=== PATIENT | female | born 1965 | race Caucasian/White ===

== ENCOUNTER 2022-05-15 09:51 | Inpatient (IN) | payer MEDICARE, OTHER ==
[2022-05-15] MEDS ORDERED: Albuterol 8 GM Inhaler INH PRN (14:13)
[2022-05-15] MEDS ORDERED: HYDROmorphone 2 MG Tab PO PRN (14:13)
[2022-05-15] MEDS ORDERED: hydrOXYzine HCl 25 MG Tab PO PRN (14:13)
[2022-05-15] MEDS ORDERED: Acetaminophen 325 MG Tab PO PRN (14:13)
[2022-05-15] MEDS ORDERED: DAPTOmycin 500 MG Vial IV SCH (14:15)
[2022-05-15] MEDS ORDERED: Methotrexate 2.5 MG Tab PO SCH (14:15)
[2022-05-15] MEDS ORDERED: USTEKINUMAB 45 MG/0.5 ML SQ SCH (14:15)
[2022-05-15] MEDS: HYDROmorphone 2 MG Tab PO PRN ×2 (17:44→23:45)
[2022-05-15] MEDS: Insulin Lispro 100 Unit/ML 3 ML KwikPen SUBCUT SCH (18:25)
[2022-05-15] MEDS: Fluticasone NASAL Spray 16 GM Bottle NASBOTH SCH (20:35)
[2022-05-15] MEDS: lamoTRIgine 100 MG Tab PO SCH (20:35)
[2022-05-15] MEDS: Melatonin 3 MG Tab PO SCH (20:36)
[2022-05-15] MEDS: Pramipexole 0.25 MG Tab PO SCH (20:36)
[2022-05-15] MEDS: Montelukast 10 MG Tab PO SCH (20:37)
[2022-05-15] MEDS: carBAMazepine 200 MG TAB.ER PO SCH (20:37)
[2022-05-15] MEDS: Losartan 50 MG Tab PO SCH (20:40)
[2022-05-15] MEDS: Pregabalin 100 MG Cap PO SCH (20:40)
[2022-05-15] MEDS ORDERED: Non-Formulary Medication 1 Each (Insulin Aspart [Novolog] 100 UNIT/ML Pen) SQ SCH (21:00)
[2022-05-16] MEDS ORDERED: Levothyroxine 125 MCG Tab PO SCH (06:00)
[2022-05-16] MEDS: HYDROmorphone 2 MG Tab PO PRN ×3 (06:39→21:38)
[2022-05-16] MEDS: Levothyroxine 125 MCG Tab PO SCH (06:40)
[2022-05-16] MEDS: Pantoprazole 40 MG Tab.CR PO SCH (06:40)
[2022-05-16] MEDS ORDERED: Non-Formulary Medication 1 Each (Amphetamine/Dextroamphetamine [Adderall Xr] 30 MG Cap.Er) PO SCH (09:00)
[2022-05-16] MEDS ORDERED: VITAMIN E 100 UNIT PO SCH (09:00)
[2022-05-16] MEDS: Fluticasone NASAL Spray 16 GM Bottle NASBOTH SCH ×2 (09:03→21:20)
[2022-05-16] MEDS: Ascorbic Acid 500 MG Tab PO SCH (09:04)
[2022-05-16] MEDS: Fish Oil/Omega-3 Fatty Acids 1 Gm Cap PO SCH (09:05)
[2022-05-16] MEDS: Folic Acid 0.4 MG Tab PO SCH (09:05)
[2022-05-16] MEDS: lamoTRIgine 100 MG Tab PO SCH ×2 (09:05→21:20)
[2022-05-16] MEDS: FLUoxetine 20 MG Cap PO SCH (09:05)
[2022-05-16] MEDS: Cholecalciferol (Vitamin D3) 25 MCG Tab PO SCH (09:06)
[2022-05-16] MEDS: Cyanocobalamin (Vitamin B12) 1,000 MCG Tab PO SCH (09:06)
[2022-05-16] MEDS: Aspirin 325 MG Tab.EC PO SCH (09:07)
[2022-05-16] MEDS: Multivitamins with Iron/Calcium/Folic Acid/Minerals Tab PO SCH (09:07)
[2022-05-16] MEDS: carBAMazepine 200 MG TAB.ER PO SCH ×2 (09:08→21:20)
[2022-05-16] MEDS: Nicotine 21 MG/24 Hr Patch TRDERM SCH (09:09)
[2022-05-16] MEDS: Remove Patch NICOTINE PATCH TRDERM SCH (09:10)
[2022-05-16] MEDS ORDERED: Insulin Lispro 100 Unit/ML 3 ML KwikPen SUBCUT ONE (09:16)
[2022-05-16] MEDS: Pregabalin 50 MG Cap PO SCH (09:17)
[2022-05-16] MEDS: Insulin Lispro 100 Unit/ML 3 ML KwikPen SUBCUT SCH ×3 (09:17→19:48)
[2022-05-16] MEDS: Sodium Chloride 0.9% 10 ML Syringe FLUSH PRN (10:42)
[2022-05-16] MEDS: Pramipexole 0.25 MG Tab PO SCH (21:19)
[2022-05-16] MEDS: Melatonin 3 MG Tab PO SCH (21:20)
[2022-05-16] MEDS: Montelukast 10 MG Tab PO SCH (21:20)
[2022-05-16] MEDS: Losartan 50 MG Tab PO SCH (21:33)
[2022-05-16] MEDS: Pregabalin 100 MG Cap PO SCH (21:33)
[2022-05-17] MEDS: Polyethylene Glycol 3350 Powder 17 GM Packet PO PRN (06:21)
[2022-05-17] MEDS: Levothyroxine 125 MCG Tab PO SCH ×2 (06:22→07:52)
[2022-05-17] MEDS: Pantoprazole 40 MG Tab.CR PO SCH ×2 (06:22→07:52)
[2022-05-17] MEDS: HYDROmorphone 2 MG Tab PO PRN ×3 (07:15→21:32)
[2022-05-17] MEDS: Insulin Lispro 100 Unit/ML 3 ML KwikPen SUBCUT SCH ×3 (08:36→18:21)
[2022-05-17] MEDS: Aspirin 325 MG Tab.EC PO SCH (08:39)
[2022-05-17] MEDS: Fluticasone NASAL Spray 16 GM Bottle NASBOTH SCH ×2 (08:40→21:24)
[2022-05-17] MEDS: Fish Oil/Omega-3 Fatty Acids 1 Gm Cap PO SCH (08:40)
[2022-05-17] MEDS: Folic Acid 0.4 MG Tab PO SCH (08:40)
[2022-05-17] MEDS: Nicotine 21 MG/24 Hr Patch TRDERM SCH (08:41)
[2022-05-17] MEDS: FLUoxetine 20 MG Cap PO SCH (08:44)
[2022-05-17] MEDS: Multivitamins with Iron/Calcium/Folic Acid/Minerals Tab PO SCH (08:44)
[2022-05-17] MEDS: Ascorbic Acid 500 MG Tab PO SCH (08:45)
[2022-05-17] MEDS: Cyanocobalamin (Vitamin B12) 1,000 MCG Tab PO SCH (08:45)
[2022-05-17] MEDS: carBAMazepine 200 MG TAB.ER PO SCH ×2 (08:46→21:24)
[2022-05-17] MEDS: lamoTRIgine 100 MG Tab PO SCH ×2 (08:46→21:24)
[2022-05-17] MEDS: Cholecalciferol (Vitamin D3) 25 MCG Tab PO SCH (08:47)
[2022-05-17] MEDS: Remove Patch NICOTINE PATCH TRDERM SCH (08:47)
[2022-05-17] MEDS ORDERED: Bisacodyl 5 MG Tab PO PRN (08:52)
[2022-05-17] MEDS: Pregabalin 50 MG Cap PO SCH (09:13)
[2022-05-17] MEDS: Sodium Chloride 0.9% 10 ML Syringe FLUSH PRN ×2 (10:08→10:38)
[2022-05-17] MEDS: Methylphenidate 5 MG Tab PO SCH ×2 (10:50→15:12)
[2022-05-17] MEDS: Pregabalin 100 MG Cap PO SCH (21:24)
[2022-05-17] MEDS: Montelukast 10 MG Tab PO SCH (21:24)
[2022-05-17] MEDS: Melatonin 3 MG Tab PO SCH (21:24)
[2022-05-17] MEDS: Pramipexole 0.25 MG Tab PO SCH (21:24)
[2022-05-17] MEDS: Losartan 50 MG Tab PO SCH (21:25)
[2022-05-18] MEDS: Polyethylene Glycol 3350 Powder 17 GM Packet PO PRN (06:00)
[2022-05-18] MEDS: HYDROmorphone 2 MG Tab PO PRN ×3 (06:29→21:37)
[2022-05-18] MEDS: Pantoprazole 40 MG Tab.CR PO SCH (06:30)
[2022-05-18] MEDS: Levothyroxine 125 MCG Tab PO SCH (06:30)
[2022-05-18] MEDS: Insulin Lispro 100 Unit/ML 3 ML KwikPen SUBCUT SCH ×3 (08:30→18:17)
[2022-05-18] MEDS: Aspirin 325 MG Tab.EC PO SCH (08:42)
[2022-05-18] MEDS: Fish Oil/Omega-3 Fatty Acids 1 Gm Cap PO SCH (08:42)
[2022-05-18] MEDS: Fluticasone NASAL Spray 16 GM Bottle NASBOTH SCH ×2 (08:43→21:36)
[2022-05-18] MEDS: Folic Acid 0.4 MG Tab PO SCH (08:43)
[2022-05-18] MEDS: Nicotine 21 MG/24 Hr Patch TRDERM SCH (08:43)
[2022-05-18] MEDS: lamoTRIgine 100 MG Tab PO SCH ×2 (08:46→21:36)
[2022-05-18] MEDS: Remove Patch NICOTINE PATCH TRDERM SCH (08:48)
[2022-05-18] MEDS: FLUoxetine 20 MG Cap PO SCH (08:48)
[2022-05-18] MEDS: Multivitamins with Iron/Calcium/Folic Acid/Minerals Tab PO SCH (08:49)
[2022-05-18] MEDS: carBAMazepine 200 MG TAB.ER PO SCH ×2 (08:49→21:36)
[2022-05-18] MEDS: Cholecalciferol (Vitamin D3) 25 MCG Tab PO SCH (08:50)
[2022-05-18] MEDS: Cyanocobalamin (Vitamin B12) 1,000 MCG Tab PO SCH (08:50)
[2022-05-18] MEDS: Ascorbic Acid 500 MG Tab PO SCH (08:50)
[2022-05-18] MEDS: Methylphenidate 5 MG Tab PO SCH ×2 (08:58→13:41)
[2022-05-18] MEDS: Pregabalin 50 MG Cap PO SCH (08:58)
[2022-05-18] MEDS: Sodium Chloride 0.9% 10 ML Syringe FLUSH PRN ×3 (10:13→13:00)
[2022-05-18] MEDS: Pregabalin 100 MG Cap PO SCH (21:36)
[2022-05-18] MEDS: Montelukast 10 MG Tab PO SCH (21:36)
[2022-05-18] MEDS: Melatonin 3 MG Tab PO SCH (21:36)
[2022-05-18] MEDS: Pramipexole 0.25 MG Tab PO SCH (21:36)
[2022-05-18] MEDS: Losartan 50 MG Tab PO SCH (21:38)
[2022-05-19] MEDS: HYDROmorphone 2 MG Tab PO PRN ×3 (06:34→21:19)
[2022-05-19] MEDS: Pantoprazole 40 MG Tab.CR PO SCH (06:35)
[2022-05-19] MEDS: Levothyroxine 125 MCG Tab PO SCH (06:35)
[2022-05-19] MEDS: Insulin Lispro 100 Unit/ML 3 ML KwikPen SUBCUT SCH ×3 (08:40→18:09)
[2022-05-19] MEDS: Methylphenidate 5 MG Tab PO SCH ×2 (08:42→14:36)
[2022-05-19] MEDS: Aspirin 325 MG Tab.EC PO SCH (08:42)
[2022-05-19] MEDS: Folic Acid 0.4 MG Tab PO SCH (08:43)
[2022-05-19] MEDS: FLUoxetine 20 MG Cap PO SCH (08:43)
[2022-05-19] MEDS: Multivitamins with Iron/Calcium/Folic Acid/Minerals Tab PO SCH (08:43)
[2022-05-19] MEDS: Cyanocobalamin (Vitamin B12) 1,000 MCG Tab PO SCH (08:44)
[2022-05-19] MEDS: Fish Oil/Omega-3 Fatty Acids 1 Gm Cap PO SCH (08:44)
[2022-05-19] MEDS: Ascorbic Acid 500 MG Tab PO SCH (08:44)
[2022-05-19] MEDS: carBAMazepine 200 MG TAB.ER PO SCH ×2 (08:45→21:21)
[2022-05-19] MEDS: Cholecalciferol (Vitamin D3) 25 MCG Tab PO SCH (08:45)
[2022-05-19] MEDS: lamoTRIgine 100 MG Tab PO SCH ×2 (08:46→21:21)
[2022-05-19] MEDS: Fluticasone NASAL Spray 16 GM Bottle NASBOTH SCH ×2 (08:47→21:19)
[2022-05-19] MEDS: Remove Patch NICOTINE PATCH TRDERM SCH (08:48)
[2022-05-19] MEDS: Pregabalin 50 MG Cap PO SCH (08:50)
[2022-05-19] MEDS: Nicotine 21 MG/24 Hr Patch TRDERM SCH (08:55)
[2022-05-19] MEDS: Sodium Chloride 0.9% 10 ML Syringe FLUSH PRN ×2 (10:35→11:05)
[2022-05-19] MEDS: Pregabalin 100 MG Cap PO SCH (21:19)
[2022-05-19] MEDS: Losartan 50 MG Tab PO SCH (21:20)
[2022-05-19] MEDS: Pramipexole 0.25 MG Tab PO SCH (21:21)
[2022-05-19] MEDS: Montelukast 10 MG Tab PO SCH (21:22)
[2022-05-19] MEDS: Melatonin 3 MG Tab PO SCH (21:22)
[2022-05-20] MEDS: Polyethylene Glycol 3350 Powder 17 GM Packet PO PRN (04:32)
[2022-05-20] MEDS: HYDROmorphone 2 MG Tab PO PRN ×3 (04:57→19:00)
[2022-05-20] MEDS: Pantoprazole 40 MG Tab.CR PO SCH (06:52)
[2022-05-20] MEDS: Levothyroxine 125 MCG Tab PO SCH (06:53)
[2022-05-20] MEDS: Insulin Lispro 100 Unit/ML 3 ML KwikPen SUBCUT SCH ×3 (08:13→18:41)
[2022-05-20] MEDS: Fluticasone NASAL Spray 16 GM Bottle NASBOTH SCH ×2 (08:19→20:03)
[2022-05-20] MEDS: Aspirin 325 MG Tab.EC PO SCH (08:19)
[2022-05-20] MEDS: Fish Oil/Omega-3 Fatty Acids 1 Gm Cap PO SCH (08:19)
[2022-05-20] MEDS: Folic Acid 0.4 MG Tab PO SCH (08:19)
[2022-05-20] MEDS: Methylphenidate 5 MG Tab PO SCH ×2 (08:19→14:44)
[2022-05-20] MEDS: Nicotine 21 MG/24 Hr Patch TRDERM SCH (08:20)
[2022-05-20] MEDS: lamoTRIgine 100 MG Tab PO SCH ×2 (08:22→20:06)
[2022-05-20] MEDS: Pregabalin 50 MG Cap PO SCH (08:23)
[2022-05-20] MEDS: FLUoxetine 20 MG Cap PO SCH (08:23)
[2022-05-20] MEDS: Remove Patch NICOTINE PATCH TRDERM SCH (08:23)
[2022-05-20] MEDS: carBAMazepine 200 MG TAB.ER PO SCH ×2 (08:25→20:08)
[2022-05-20] MEDS: Cyanocobalamin (Vitamin B12) 1,000 MCG Tab PO SCH (08:25)
[2022-05-20] MEDS: Multivitamins with Iron/Calcium/Folic Acid/Minerals Tab PO SCH (08:25)
[2022-05-20] MEDS: Ascorbic Acid 500 MG Tab PO SCH (08:26)
[2022-05-20] MEDS: Cholecalciferol (Vitamin D3) 25 MCG Tab PO SCH (08:26)
[2022-05-20] MEDS: Sodium Chloride 0.9% 10 ML Syringe FLUSH PRN ×2 (10:32→11:24)
[2022-05-20] MEDS: Losartan 50 MG Tab PO SCH (20:05)
[2022-05-20] MEDS: Melatonin 3 MG Tab PO SCH (20:06)
[2022-05-20] MEDS: Pramipexole 0.25 MG Tab PO SCH (20:07)
[2022-05-20] MEDS: Montelukast 10 MG Tab PO SCH (20:08)
[2022-05-20] MEDS: Pregabalin 100 MG Cap PO SCH (20:10)
[2022-05-21] MEDS: HYDROmorphone 2 MG Tab PO PRN ×3 (01:15→14:29)
[2022-05-21] MEDS: Levothyroxine 125 MCG Tab PO SCH (06:56)
[2022-05-21] MEDS: Pantoprazole 40 MG Tab.CR PO SCH (06:56)
[2022-05-21] MEDS: Sodium Chloride 0.9% 10 ML Syringe FLUSH PRN (07:44)
[2022-05-21] MEDS: Insulin Lispro 100 Unit/ML 3 ML KwikPen SUBCUT SCH ×3 (07:47→18:14)
[2022-05-21] MEDS: Methylphenidate 5 MG Tab PO SCH ×2 (07:56→14:29)
[2022-05-21] MEDS: Aspirin 325 MG Tab.EC PO SCH (08:00)
[2022-05-21] MEDS: Fish Oil/Omega-3 Fatty Acids 1 Gm Cap PO SCH (08:00)
[2022-05-21] MEDS: Pregabalin 50 MG Cap PO SCH (08:00)
[2022-05-21] MEDS: Fluticasone NASAL Spray 16 GM Bottle NASBOTH SCH ×2 (08:01→20:58)
[2022-05-21] MEDS: Nicotine 21 MG/24 Hr Patch TRDERM SCH (08:01)
[2022-05-21] MEDS: Folic Acid 0.8 MG Tab PO SCH (08:01)
[2022-05-21] MEDS: lamoTRIgine 100 MG Tab PO SCH ×2 (08:03→20:57)
[2022-05-21] MEDS: Remove Patch NICOTINE PATCH TRDERM SCH (08:05)
[2022-05-21] MEDS: carBAMazepine 200 MG TAB.ER PO SCH ×2 (08:05→20:57)
[2022-05-21] MEDS: FLUoxetine 20 MG Cap PO SCH (08:05)
[2022-05-21] MEDS: Cyanocobalamin (Vitamin B12) 1,000 MCG Tab PO SCH (08:06)
[2022-05-21] MEDS: Ascorbic Acid 500 MG Tab PO SCH (08:06)
[2022-05-21] MEDS: Cholecalciferol (Vitamin D3) 25 MCG Tab PO SCH (08:06)
[2022-05-21] MEDS: Multivitamins with Iron/Calcium/Folic Acid/Minerals Tab PO SCH (08:06)
[2022-05-21] MEDS: Pramipexole 0.25 MG Tab PO SCH (20:56)
[2022-05-21] MEDS: Montelukast 10 MG Tab PO SCH (20:57)
[2022-05-21] MEDS: Melatonin 3 MG Tab PO SCH (20:57)
[2022-05-21] MEDS: Pregabalin 100 MG Cap PO SCH (21:04)
[2022-05-21] MEDS: Losartan 50 MG Tab PO SCH (21:07)
[2022-05-22] MEDS: HYDROmorphone 2 MG Tab PO PRN ×5 (04:09→18:12)
[2022-05-22] MEDS: Levothyroxine 125 MCG Tab PO SCH (06:45)
[2022-05-22] MEDS: Pantoprazole 40 MG Tab.CR PO SCH (06:45)
[2022-05-22] MEDS: Methylphenidate 5 MG Tab PO SCH ×2 (09:00→13:34)
[2022-05-22] MEDS: Insulin Lispro 100 Unit/ML 3 ML KwikPen SUBCUT SCH ×3 (09:02→17:46)
[2022-05-22] MEDS: Pregabalin 50 MG Cap PO SCH (09:02)
[2022-05-22] MEDS: Fish Oil/Omega-3 Fatty Acids 1 Gm Cap PO SCH (09:13)
[2022-05-22] MEDS: Fluticasone NASAL Spray 16 GM Bottle NASBOTH SCH ×2 (09:13→20:13)
[2022-05-22] MEDS: Folic Acid 0.8 MG Tab PO SCH (09:13)
[2022-05-22] MEDS: Nicotine 21 MG/24 Hr Patch TRDERM SCH (09:13)
[2022-05-22] MEDS: Aspirin 325 MG Tab.EC PO SCH (09:13)
[2022-05-22] MEDS: FLUoxetine 20 MG Cap PO SCH (09:14)
[2022-05-22] MEDS: Remove Patch NICOTINE PATCH TRDERM SCH (09:14)
[2022-05-22] MEDS: lamoTRIgine 100 MG Tab PO SCH ×2 (09:14→20:14)
[2022-05-22] MEDS: Multivitamins with Iron/Calcium/Folic Acid/Minerals Tab PO SCH (09:15)
[2022-05-22] MEDS: carBAMazepine 200 MG TAB.ER PO SCH ×2 (09:15→20:19)
[2022-05-22] MEDS: Ascorbic Acid 500 MG Tab PO SCH (09:15)
[2022-05-22] MEDS: Cholecalciferol (Vitamin D3) 25 MCG Tab PO SCH (09:15)
[2022-05-22] MEDS: Cyanocobalamin (Vitamin B12) 1,000 MCG Tab PO SCH (09:15)
[2022-05-22] MEDS: Sodium Chloride 0.9% 10 ML Syringe FLUSH PRN (10:15)
[2022-05-22] MEDS: Losartan 50 MG Tab PO SCH (20:13)
[2022-05-22] MEDS: Melatonin 3 MG Tab PO SCH (20:16)
[2022-05-22] MEDS: Pramipexole 0.25 MG Tab PO SCH (20:17)
[2022-05-22] MEDS: Montelukast 10 MG Tab PO SCH (20:18)
[2022-05-22] MEDS: Pregabalin 100 MG Cap PO SCH (20:21)
[2022-05-23] MEDS: HYDROmorphone 2 MG Tab PO PRN ×3 (06:18→21:31)
[2022-05-23] MEDS: Levothyroxine 125 MCG Tab PO SCH (06:38)
[2022-05-23] MEDS: Pantoprazole 40 MG Tab.CR PO SCH (06:39)
[2022-05-23] MEDS: Methylphenidate 5 MG Tab PO SCH ×2 (08:55→13:35)
[2022-05-23] MEDS: Insulin Lispro 100 Unit/ML 3 ML KwikPen SUBCUT SCH ×3 (08:56→17:08)
[2022-05-23] MEDS: Pregabalin 50 MG Cap PO SCH (08:56)
[2022-05-23] MEDS: FLUoxetine 20 MG Cap PO SCH (08:58)
[2022-05-23] MEDS: carBAMazepine 200 MG TAB.ER PO SCH ×2 (08:58→21:19)
[2022-05-23] MEDS: Folic Acid 0.8 MG Tab PO SCH (08:58)
[2022-05-23] MEDS: Aspirin 325 MG Tab.EC PO SCH (08:58)
[2022-05-23] MEDS: Fish Oil/Omega-3 Fatty Acids 1 Gm Cap PO SCH (08:59)
[2022-05-23] MEDS: Cyanocobalamin (Vitamin B12) 1,000 MCG Tab PO SCH (08:59)
[2022-05-23] MEDS: Multivitamins with Iron/Calcium/Folic Acid/Minerals Tab PO SCH (08:59)
[2022-05-23] MEDS: Ascorbic Acid 500 MG Tab PO SCH (08:59)
[2022-05-23] MEDS: Fluticasone NASAL Spray 16 GM Bottle NASBOTH SCH ×3 (09:00→21:14)
[2022-05-23] MEDS: Nicotine 21 MG/24 Hr Patch TRDERM SCH (09:00)
[2022-05-23] MEDS: lamoTRIgine 100 MG Tab PO SCH ×2 (09:00→21:15)
[2022-05-23] MEDS: Remove Patch NICOTINE PATCH TRDERM SCH (09:00)
[2022-05-23] MEDS: Cholecalciferol (Vitamin D3) 25 MCG Tab PO SCH (09:01)
[2022-05-23] MEDS ORDERED: SODIUM CHLORIDE 0.9% IVPUSH SCH (10:00)
[2022-05-23] MEDS ORDERED: DAPTOMYCIN IVPUSH SCH (10:00)
[2022-05-23] MEDS: Sodium Chloride 0.9% 10 ML Syringe FLUSH PRN (10:20)
[2022-05-23] MEDS: Losartan 50 MG Tab PO SCH (21:10)
[2022-05-23] MEDS: Melatonin 3 MG Tab PO SCH (21:16)
[2022-05-23] MEDS: Pramipexole 0.25 MG Tab PO SCH (21:16)
[2022-05-23] MEDS: Montelukast 10 MG Tab PO SCH (21:18)
[2022-05-23] MEDS: Pregabalin 100 MG Cap PO SCH (21:29)
[2022-05-24] MEDS: Pantoprazole 40 MG Tab.CR PO SCH (06:49)
[2022-05-24] MEDS: Levothyroxine 125 MCG Tab PO SCH (06:49)
[2022-05-24] MEDS: HYDROmorphone 2 MG Tab PO PRN (06:53)
[2022-05-24] MEDS: Insulin Lispro 100 Unit/ML 3 ML KwikPen SUBCUT SCH ×3 (07:15→17:47)
[2022-05-24] MEDS: Methylphenidate 5 MG Tab PO SCH ×2 (07:54→13:26)
[2022-05-24] MEDS: Aspirin 325 MG Tab.EC PO SCH (07:59)
[2022-05-24] MEDS: Fluticasone NASAL Spray 16 GM Bottle NASBOTH SCH ×2 (07:59→20:23)
[2022-05-24] MEDS: Pregabalin 50 MG Cap PO SCH (07:59)
[2022-05-24] MEDS: Fish Oil/Omega-3 Fatty Acids 1 Gm Cap PO SCH (07:59)
[2022-05-24] MEDS: Folic Acid 0.8 MG Tab PO SCH (07:59)
[2022-05-24] MEDS: carBAMazepine 200 MG TAB.ER PO SCH ×2 (08:00→20:26)
[2022-05-24] MEDS: Ascorbic Acid 500 MG Tab PO SCH (08:00)
[2022-05-24] MEDS: FLUoxetine 20 MG Cap PO SCH (08:01)
[2022-05-24] MEDS: Cyanocobalamin (Vitamin B12) 1,000 MCG Tab PO SCH (08:01)
[2022-05-24] MEDS: Nicotine 21 MG/24 Hr Patch TRDERM SCH (08:01)
[2022-05-24] MEDS: lamoTRIgine 100 MG Tab PO SCH ×2 (08:01→20:24)
[2022-05-24] MEDS: Cholecalciferol (Vitamin D3) 25 MCG Tab PO SCH (08:01)
[2022-05-24] MEDS: Multivitamins with Iron/Calcium/Folic Acid/Minerals Tab PO SCH (08:07)
[2022-05-24] MEDS: Remove Patch NICOTINE PATCH TRDERM SCH (08:07)
[2022-05-24] MEDS: Acetaminophen/HYDROcodone 325-5 MG Tab PO PRN ×2 (11:30→20:29)
[2022-05-24] MEDS: hydrOXYzine HCl 25 MG Tab PO PRN (11:30)
[2022-05-24] MEDS: Pramipexole 0.25 MG Tab PO SCH (20:24)
[2022-05-24] MEDS: Melatonin 3 MG Tab PO SCH (20:24)
[2022-05-24] MEDS: Losartan 50 MG Tab PO SCH (20:26)
[2022-05-24] MEDS: Montelukast 10 MG Tab PO SCH (20:26)
[2022-05-24] MEDS: Pregabalin 100 MG Cap PO SCH (20:29)
[2022-05-25] MEDS: Acetaminophen/HYDROcodone 325-5 MG Tab PO PRN ×3 (06:33→21:26)
[2022-05-25] MEDS: Levothyroxine 125 MCG Tab PO SCH (06:33)
[2022-05-25] MEDS: Pantoprazole 40 MG Tab.CR PO SCH (06:33)
[2022-05-25] MEDS: Insulin Lispro 100 Unit/ML 3 ML KwikPen SUBCUT SCH ×3 (08:00→18:27)
[2022-05-25] MEDS: Fish Oil/Omega-3 Fatty Acids 1 Gm Cap PO SCH (08:01)
[2022-05-25] MEDS: Cyanocobalamin (Vitamin B12) 1,000 MCG Tab PO SCH (08:01)
[2022-05-25] MEDS: Folic Acid 0.8 MG Tab PO SCH (08:02)
[2022-05-25] MEDS: lamoTRIgine 100 MG Tab PO SCH ×2 (08:02→21:14)
[2022-05-25] MEDS: carBAMazepine 200 MG TAB.ER PO SCH ×2 (08:02→21:18)
[2022-05-25] MEDS: Aspirin 325 MG Tab.EC PO SCH (08:02)
[2022-05-25] MEDS: Cholecalciferol (Vitamin D3) 25 MCG Tab PO SCH (08:03)
[2022-05-25] MEDS: FLUoxetine 20 MG Cap PO SCH (08:03)
[2022-05-25] MEDS: Multivitamins with Iron/Calcium/Folic Acid/Minerals Tab PO SCH (08:03)
[2022-05-25] MEDS: Nicotine 21 MG/24 Hr Patch TRDERM SCH (08:05)
[2022-05-25] MEDS: Fluticasone NASAL Spray 16 GM Bottle NASBOTH SCH ×2 (08:06→21:13)
[2022-05-25] MEDS: Ascorbic Acid 500 MG Tab PO SCH (08:10)
[2022-05-25] MEDS: Remove Patch NICOTINE PATCH TRDERM SCH (08:13)
[2022-05-25] MEDS: Methylphenidate 5 MG Tab PO SCH ×2 (08:18→14:30)
[2022-05-25] MEDS: Pregabalin 50 MG Cap PO SCH (08:18)
[2022-05-25] MEDS: Losartan 50 MG Tab PO SCH (21:10)
[2022-05-25] MEDS: Pramipexole 0.25 MG Tab PO SCH (21:15)
[2022-05-25] MEDS: Melatonin 3 MG Tab PO SCH (21:17)
[2022-05-25] MEDS: Montelukast 10 MG Tab PO SCH (21:18)
[2022-05-25] MEDS: Pregabalin 100 MG Cap PO SCH (21:26)
[2022-05-26] MEDS: Acetaminophen/HYDROcodone 325-5 MG Tab PO PRN ×2 (03:03→18:30)
[2022-05-26] MEDS: Levothyroxine 125 MCG Tab PO SCH (07:08)
[2022-05-26] MEDS: Pantoprazole 40 MG Tab.CR PO SCH (07:08)
[2022-05-26] MEDS: Polyethylene Glycol 3350 Powder 17 GM Packet PO PRN (07:10)
[2022-05-26] MEDS: Insulin Lispro 100 Unit/ML 3 ML KwikPen SUBCUT SCH ×3 (08:04→18:04)
[2022-05-26] MEDS: Fish Oil/Omega-3 Fatty Acids 1 Gm Cap PO SCH (08:07)
[2022-05-26] MEDS: Fluticasone NASAL Spray 16 GM Bottle NASBOTH SCH ×2 (08:07→20:56)
[2022-05-26] MEDS: Pregabalin 50 MG Cap PO SCH (08:07)
[2022-05-26] MEDS: FLUoxetine 20 MG Cap PO SCH (08:07)
[2022-05-26] MEDS: Aspirin 325 MG Tab.EC PO SCH (08:07)
[2022-05-26] MEDS: carBAMazepine 200 MG TAB.ER PO SCH ×2 (08:08→20:59)
[2022-05-26] MEDS: Ascorbic Acid 500 MG Tab PO SCH (08:08)
[2022-05-26] MEDS: Cyanocobalamin (Vitamin B12) 1,000 MCG Tab PO SCH (08:08)
[2022-05-26] MEDS: Cholecalciferol (Vitamin D3) 25 MCG Tab PO SCH (08:08)
[2022-05-26] MEDS: Methylphenidate 5 MG Tab PO SCH ×2 (08:09→14:22)
[2022-05-26] MEDS: Multivitamins with Iron/Calcium/Folic Acid/Minerals Tab PO SCH (08:09)
[2022-05-26] MEDS: Folic Acid 0.8 MG Tab PO SCH (08:09)
[2022-05-26] MEDS: Remove Patch NICOTINE PATCH TRDERM SCH (08:10)
[2022-05-26] MEDS: lamoTRIgine 100 MG Tab PO SCH ×2 (08:10→20:58)
[2022-05-26] MEDS: Nicotine 21 MG/24 Hr Patch TRDERM SCH (08:11)
[2022-05-26] MEDS ORDERED: Calcium Carbonate 500 MG Tab.Chew PO PRN (18:30)
[2022-05-26] MEDS: Losartan 50 MG Tab PO SCH (20:56)
[2022-05-26] MEDS: Pramipexole 0.25 MG Tab PO SCH (20:58)
[2022-05-26] MEDS: Pregabalin 100 MG Cap PO SCH (20:58)
[2022-05-26] MEDS: Melatonin 3 MG Tab PO SCH (20:58)
[2022-05-26] MEDS: Montelukast 10 MG Tab PO SCH (20:59)
[2022-05-27] MEDS: Acetaminophen/HYDROcodone 325-5 MG Tab PO PRN ×2 (06:28→18:31)
[2022-05-27] MEDS: Pantoprazole 40 MG Tab.CR PO SCH (06:33)
[2022-05-27] MEDS: Levothyroxine 125 MCG Tab PO SCH (06:33)
[2022-05-27] MEDS: Insulin Lispro 100 Unit/ML 3 ML KwikPen SUBCUT SCH ×3 (07:36→17:51)
[2022-05-27] MEDS: Folic Acid 0.8 MG Tab PO SCH (08:20)
[2022-05-27] MEDS: Methylphenidate 5 MG Tab PO SCH ×2 (08:20→14:19)
[2022-05-27] MEDS: Pregabalin 50 MG Cap PO SCH (08:20)
[2022-05-27] MEDS: Fish Oil/Omega-3 Fatty Acids 1 Gm Cap PO SCH (08:21)
[2022-05-27] MEDS: Ascorbic Acid 500 MG Tab PO SCH (08:21)
[2022-05-27] MEDS: Multivitamins with Iron/Calcium/Folic Acid/Minerals Tab PO SCH (08:21)
[2022-05-27] MEDS: lamoTRIgine 100 MG Tab PO SCH ×2 (08:21→20:15)
[2022-05-27] MEDS: Cholecalciferol (Vitamin D3) 25 MCG Tab PO SCH (08:21)
[2022-05-27] MEDS: Cyanocobalamin (Vitamin B12) 1,000 MCG Tab PO SCH (08:21)
[2022-05-27] MEDS: FLUoxetine 20 MG Cap PO SCH (08:21)
[2022-05-27] MEDS: Aspirin 325 MG Tab.EC PO SCH (08:21)
[2022-05-27] MEDS: carBAMazepine 200 MG TAB.ER PO SCH ×2 (08:22→20:16)
[2022-05-27] MEDS: Fluticasone NASAL Spray 16 GM Bottle NASBOTH SCH ×2 (08:22→20:15)
[2022-05-27] MEDS: Remove Patch NICOTINE PATCH TRDERM SCH (10:07)
[2022-05-27] MEDS: Nicotine 21 MG/24 Hr Patch TRDERM SCH (10:08)
[2022-05-27] MEDS: SODIUM CHLORIDE 0.9% IVPUSH SCH (10:09)
[2022-05-27] MEDS: DAPTOMYCIN IVPUSH SCH (10:09)
[2022-05-27] MEDS: Losartan 50 MG Tab PO SCH (20:14)
[2022-05-27] MEDS: Pregabalin 100 MG Cap PO SCH (20:15)
[2022-05-27] MEDS: Montelukast 10 MG Tab PO SCH (20:16)
[2022-05-27] MEDS: Pramipexole 0.25 MG Tab PO SCH (20:17)
[2022-05-27] MEDS: Melatonin 3 MG Tab PO SCH (20:17)
[2022-05-27] MEDS: hydrOXYzine HCl 25 MG Tab PO PRN (20:22)
[2022-05-28] MEDS: Levothyroxine 125 MCG Tab PO SCH (07:08)
[2022-05-28] MEDS: Pantoprazole 40 MG Tab.CR PO SCH (07:09)
[2022-05-28] MEDS: Polyethylene Glycol 3350 Powder 17 GM Packet PO PRN (07:09)
[2022-05-28] MEDS: Methylphenidate 5 MG Tab PO SCH ×2 (07:09→13:30)
[2022-05-28] MEDS: Insulin Lispro 100 Unit/ML 3 ML KwikPen SUBCUT SCH ×3 (07:29→18:45)
[2022-05-28] MEDS: Aspirin 325 MG Tab.EC PO SCH (09:15)
[2022-05-28] MEDS: Fluticasone NASAL Spray 16 GM Bottle NASBOTH SCH ×2 (09:16→20:19)
[2022-05-28] MEDS: Fish Oil/Omega-3 Fatty Acids 1 Gm Cap PO SCH (09:17)
[2022-05-28] MEDS: Folic Acid 0.8 MG Tab PO SCH (09:17)
[2022-05-28] MEDS: Nicotine 21 MG/24 Hr Patch TRDERM SCH (09:18)
[2022-05-28] MEDS: Cyanocobalamin (Vitamin B12) 1,000 MCG Tab PO SCH (09:25)
[2022-05-28] MEDS: Cholecalciferol (Vitamin D3) 25 MCG Tab PO SCH (09:27)
[2022-05-28] MEDS: FLUoxetine 20 MG Cap PO SCH (09:27)
[2022-05-28] MEDS: Ascorbic Acid 500 MG Tab PO SCH (09:28)
[2022-05-28] MEDS: lamoTRIgine 100 MG Tab PO SCH ×2 (09:28→20:17)
[2022-05-28] MEDS: Remove Patch NICOTINE PATCH TRDERM SCH (09:29)
[2022-05-28] MEDS: Multivitamins with Iron/Calcium/Folic Acid/Minerals Tab PO SCH (09:31)
[2022-05-28] MEDS: carBAMazepine 200 MG TAB.ER PO SCH ×2 (09:31→20:18)
[2022-05-28] MEDS: Acetaminophen/HYDROcodone 325-5 MG Tab PO PRN ×2 (09:42→17:16)
[2022-05-28] MEDS: Pregabalin 50 MG Cap PO SCH (09:42)
[2022-05-28] MEDS: Sodium Chloride 0.9% 10 ML Syringe FLUSH PRN (10:10)
[2022-05-28] MEDS: SODIUM CHLORIDE 0.9% IVPUSH SCH (10:11)
[2022-05-28] MEDS: DAPTOMYCIN IVPUSH SCH (10:11)
[2022-05-28] MEDS: Pregabalin 100 MG Cap PO SCH (20:17)
[2022-05-28] MEDS: Pramipexole 0.25 MG Tab PO SCH (20:18)
[2022-05-28] MEDS: Montelukast 10 MG Tab PO SCH (20:18)
[2022-05-28] MEDS: Melatonin 3 MG Tab PO SCH (20:19)
[2022-05-28] MEDS: Losartan 50 MG Tab PO SCH (20:20)
[2022-05-29] MEDS: Acetaminophen/HYDROcodone 325-5 MG Tab PO PRN ×4 (02:38→20:30)
[2022-05-29] MEDS: Insulin Lispro 100 Unit/ML 3 ML KwikPen SUBCUT SCH ×3 (07:05→17:22)
[2022-05-29] MEDS: Pantoprazole 40 MG Tab.CR PO SCH (07:08)
[2022-05-29] MEDS: Methylphenidate 5 MG Tab PO SCH ×2 (07:08→14:13)
[2022-05-29] MEDS: Levothyroxine 125 MCG Tab PO SCH (07:08)
[2022-05-29] MEDS: Aspirin 325 MG Tab.EC PO SCH (08:13)
[2022-05-29] MEDS: Fish Oil/Omega-3 Fatty Acids 1 Gm Cap PO SCH (08:13)
[2022-05-29] MEDS: Folic Acid 0.8 MG Tab PO SCH (08:14)
[2022-05-29] MEDS: Multivitamins with Iron/Calcium/Folic Acid/Minerals Tab PO SCH (08:14)
[2022-05-29] MEDS: Cyanocobalamin (Vitamin B12) 1,000 MCG Tab PO SCH (08:14)
[2022-05-29] MEDS: lamoTRIgine 100 MG Tab PO SCH ×2 (08:14→20:21)
[2022-05-29] MEDS: Ascorbic Acid 500 MG Tab PO SCH (08:14)
[2022-05-29] MEDS: carBAMazepine 200 MG TAB.ER PO SCH ×2 (08:15→20:23)
[2022-05-29] MEDS: Cholecalciferol (Vitamin D3) 25 MCG Tab PO SCH (08:15)
[2022-05-29] MEDS: Fluticasone NASAL Spray 16 GM Bottle NASBOTH SCH ×2 (08:16→20:19)
[2022-05-29] MEDS: FLUoxetine 20 MG Cap PO SCH (08:20)
[2022-05-29] MEDS: Pregabalin 50 MG Cap PO SCH (08:20)
[2022-05-29] MEDS: Nicotine 21 MG/24 Hr Patch TRDERM SCH (08:57)
[2022-05-29] MEDS: Remove Patch NICOTINE PATCH TRDERM SCH (08:58)
[2022-05-29] MEDS: Sodium Chloride 0.9% 10 ML Syringe FLUSH PRN ×2 (10:22→10:58)
[2022-05-29] MEDS: DAPTOMYCIN IVPUSH SCH (10:23)
[2022-05-29] MEDS: SODIUM CHLORIDE 0.9% IVPUSH SCH (10:23)
[2022-05-29] MEDS: Melatonin 3 MG Tab PO SCH (20:21)
[2022-05-29] MEDS: Losartan 50 MG Tab PO SCH (20:21)
[2022-05-29] MEDS: Pramipexole 0.25 MG Tab PO SCH (20:22)
[2022-05-29] MEDS: Montelukast 10 MG Tab PO SCH (20:22)
[2022-05-29] MEDS: Pregabalin 100 MG Cap PO SCH (20:30)
[2022-05-30] MEDS: Pantoprazole 40 MG Tab.CR PO SCH (07:15)
[2022-05-30] MEDS: Acetaminophen/HYDROcodone 325-5 MG Tab PO PRN (07:15)
[2022-05-30] MEDS: Levothyroxine 125 MCG Tab PO SCH (07:15)
[2022-05-30] MEDS: Insulin Lispro 100 Unit/ML 3 ML KwikPen SUBCUT SCH ×2 (08:00→11:48)
[2022-05-30] MEDS: Ascorbic Acid 500 MG Tab PO SCH (08:04)
[2022-05-30] MEDS: Methylphenidate 5 MG Tab PO SCH (08:04)
[2022-05-30] MEDS: Pregabalin 50 MG Cap PO SCH (08:04)
[2022-05-30] MEDS: Multivitamins with Iron/Calcium/Folic Acid/Minerals Tab PO SCH (08:04)
[2022-05-30] MEDS: Folic Acid 0.8 MG Tab PO SCH (08:04)
[2022-05-30] MEDS: Cyanocobalamin (Vitamin B12) 1,000 MCG Tab PO SCH (08:05)
[2022-05-30] MEDS: lamoTRIgine 100 MG Tab PO SCH (08:05)
[2022-05-30] MEDS: Fish Oil/Omega-3 Fatty Acids 1 Gm Cap PO SCH (08:06)
[2022-05-30] MEDS: Aspirin 325 MG Tab.EC PO SCH (08:06)
[2022-05-30] MEDS: carBAMazepine 200 MG TAB.ER PO SCH (08:07)
[2022-05-30] MEDS: Cholecalciferol (Vitamin D3) 25 MCG Tab PO SCH (08:07)
[2022-05-30] MEDS: FLUoxetine 20 MG Cap PO SCH (08:07)
[2022-05-30] MEDS: Fluticasone NASAL Spray 16 GM Bottle NASBOTH SCH (08:08)
[2022-05-30] MEDS: Nicotine 21 MG/24 Hr Patch TRDERM SCH (08:08)
[2022-05-30] MEDS: Remove Patch NICOTINE PATCH TRDERM SCH (08:08)
[2022-05-30] MEDS: Sodium Chloride 0.9% 10 ML Syringe FLUSH PRN ×3 (10:18→11:29)
[2022-05-30] MEDS: SODIUM CHLORIDE 0.9% IVPUSH SCH (10:24)
[2022-05-30] MEDS: DAPTOMYCIN IVPUSH SCH (10:24)
[2022-06-13] MEDS ORDERED: Aspirin 81 MG Tab.EC PO SCH (09:00)
== END 2022-05-30 13:10 | disposition home health service (06) | DRG 549 ==
LOC: FB.MS 12:27 → UNDOADMIN 12:27 → FB.MS 14:11
PROVIDERS: ADMIT Family Medicine; ATTEND Family Medicine
DX: M00.071 Staphylococcal arthritis, right ankle and foot (principal); L03.116 Cellulitis of left lower limb; B95.62 Methicillin resistant Staphylococcus aureus infection as the cause of diseases classified elsewhere; E66.9 Obesity, unspecified; F31.9 Bipolar disorder, unspecified; G25.81 Restless legs syndrome; F17.210 Nicotine dependence, cigarettes, uncomplicated; E66.09 Other obesity due to excess calories; M54.40 Lumbago with sciatica, unspecified side; G89.29 Other chronic pain; K21.9 Gastro-esophageal reflux disease without esophagitis; E03.9 Hypothyroidism, unspecified; I10 Essential (primary) hypertension; G62.9 Polyneuropathy, unspecified; E11.40 Type 2 diabetes mellitus with diabetic neuropathy, unspecified; Z79.899 Other long term (current) drug therapy; Z79.890 Hormone replacement therapy; Z79.82 Long term (current) use of aspirin; Z88.5 Allergy status to narcotic agent; Z88.8 Allergy status to other drugs, medicaments and biological substances; Z68.34 Body mass index [BMI] 34.0-34.9, adult
CPT/HCPCS: 36415; 82550; 82565; 82947; 84460; 85025; 85651; 86140; 97110-GP; 97116-GP; 97161-GP; 97166-GO; 97530-GO; 97535-GO; 97542-GO; A9270-GY; J0878; J1642; J1815; J3490